=== PATIENT | female | born 1985 | race Caucasian/White ===

== ENCOUNTER 2022-02-13 16:28 | Emergency (ER) | payer BC, OTHER ==
[~2022-02-13 16:28] MED LIST: Iopamidol 370 76% 100 ML VIAL ONE
[2022-02-13] MEDS ORDERED: Sodium Chloride 0.9% 1,000 ML ONE (17:31)
[2022-02-13 17:33] LABS: #Basophils 0.1 thou/uL (0.0-0.2); #Eosinphils 0.2 thou/uL (0.0-0.7); #Lymphocytes 1.9 thou/uL (1.20-3.40); #Monocytes 0.4 thou/uL (0.11-0.59); #Neutrophils 3.3 thou/uL (1.40-6.50); %Basophils 1.2 % (0.0-1.0); %Lymphocytes 32.2 % (21.0-51.0); %Monocytes 7.2 % (0.0-10.0); %Neutrophils 55.4 % (42.0-75.0); Hemoglobin 13.7 g/dL (12.0-16.0); Mean Corpuscular HGB CONC 31.2 g/dL (32.0-36.0); Mean Corpuscular Hemoglobin 28.1 pg (27.0-31.0); Mean Corpuscular Volume 90.1 fL (78.0-98.0); Mean Platelet Volume 8.8 fL (7.4-10.4); Platelet Count 250 thou/uL (130-400); Red Blood Cell (RBC) Count 4.89 mill/uL (4.20-5.40); White Blood Cell (WBC) Count 5.9 thou/uL (4.8-10.8)
[2022-02-13 17:40] LABS: ALT (SGPT) 10 U/L (8-55); AST (SGOT) 11 U/L (5-34); Albumin 4.4 g/dL (3.5-5.0); Alkaline Phosphatase 69 U/L (40-110); Anion Gap 13 mmol/L (10-20); BUN (Urea Nitrogen) 11 mg/dL (7.0-18.7); Bilirubin, Total 0.3 mg/dL (0.2-1.2); Calc. Creatinine Clearance 0 mL/min (70-130); Carbon Dioxide 24 mmol/L (22-29); Chloride 107 mmol/L (98-107); Globulin 2.4 g/dL (2.4-3.5); Glucose 122 mg/dL (70-105); Potassium 3.7 mmol/L (3.5-5.1); Protein, Total 6.8 g/dL (6.0-8.3); Sodium 140 mmol/L (136-145)
[2022-02-13 17:44] LABS: Bilirubin Negative (Negative); Blood, Urine Negative (Negative); Glucose, Urine (Dipstick) Negative (Negative); Ketone, Urine Negative (Negative); Leukocyte Negative (Negative); Nitrite Negative (Negative); Protein, Urine (Dipstick) 30 mg/dL (Neg-Trace); pH, Urine 5.5 (5.0-9.0)
[2022-02-13 17:46] LABS: Clarity SL HAZY (Clear); Specific Gravity, Urine 1.034 (1.002-1.036)
[2022-02-13 17:47] LABS: Pregnancy Test - Urine (BHCG) Negative (Negative)
[2022-02-13 17:48] LABS: Pregu Control Background? CLEAR/WHITE (CLR/WHITE); Pregu Control Bar Appear? YES (CONTROL BAR); Specific Gravity 1.034 (1.002-1.036)
[2022-02-13 17:53] LABS: RBC/HPF 0-3 HPF (0-3); Squamous Epithelial 0-3 HPF (0-3); WBC/HPF 0-3 HPF (0-3)
[2022-02-13 17:54] LABS: Calcium Oxalate Crystals 1+ HPF (None Seen)
[2022-02-13] MEDS ORDERED: Ketorolac Tromethamine 30 MG/ML VIAL ONE (20:49)
== END 2022-02-13 20:59 | disposition home or self-care (01) ==
LOC: NAV ERS 16:28
DX: N20.0 Calculus of kidney (principal)
CPT/HCPCS: 74177; 80053; 81003; 81015; 81025; 85025; 96374; J1885; J7050; Q9967

== ENCOUNTER 2022-08-17 11:22 | Emergency (ER) | payer OTHER ==
[2022-08-17] MEDS ORDERED: Sodium Chloride 0.9% 100 ML ONE (11:52)
[2022-08-17] MEDS ORDERED: diphenhydrAMINE 50 MG/ML VIAL ONE (11:52)
[2022-08-17] MEDS ORDERED: Metoclopramide HCl 10 MG/2 ML VIAL ONE (11:52)
== END 2022-08-17 12:41 | disposition home or self-care (01) ==
LOC: NAV ER/OP 11:22
DX: G43.909 Migraine, unspecified, not intractable, without status migrainosus (principal)
CPT/HCPCS: 96365; 96375; J1200; J2765

== ENCOUNTER 2023-12-03 08:08 | Emergency (ER) | payer OTHER, SELFPAY ==
[2023-12-03] MEDS ORDERED: Ketorolac Tromethamine 30 MG (1 mL) VIAL ONE (08:32)
[2023-12-03] MEDS ORDERED: Metoclopramide HCl 10 MG (2 mL) VIAL ONE (08:32)
[2023-12-03] MEDS ORDERED: Sodium Chloride 0.9% 1,000 ML ONE (08:32)
[2023-12-03] MEDS ORDERED: diphenhydrAMINE 50 MG/ML VIAL ONE (08:32)
[2023-12-03] MEDS ORDERED: methylPREDNISolone Sod Succ/PF 125 MG/2 ML VIAL ONE (09:36)
[2023-12-03] MEDS ORDERED: Acetaminophen 500 MG TAB ONE (09:36)
== END 2023-12-03 10:31 | disposition home or self-care (01) ==
LOC: NAV ERS 08:08
DX: G43.909 Migraine, unspecified, not intractable, without status migrainosus (principal)
CPT/HCPCS: 96365; 96375; J1200; J1885; J2765; J2930; J7050

== ENCOUNTER 2024-06-25 08:21 | Emergency (ER) | payer BC, SELFPAY ==
[2024-06-25] MEDS ORDERED: Ondansetron PF 4 MG/2 ML Vial ONE (08:35)
[2024-06-25] MEDS ORDERED: Sodium Chloride 0.9% 1,000 ML ONE (08:35)
[2024-06-25] MEDS ORDERED: Ketorolac Tromethamine 30 MG (1 mL) VIAL ONE (08:35)
[2024-06-25 08:40] LABS: #Basophils 0.1 thou/uL (0.0-0.2); #Eosinphils 0.3 thou/uL (0.0-0.7); #Lymphocytes 1.5 thou/uL (1.20-3.40); #Monocytes 0.4 thou/uL (0.11-0.59); %Basophils 1.2 % (0.0-1.0); %Lymphocytes 29.1 % (21.0-51.0); %Monocytes 7.1 % (0.0-10.0); %Neutrophils 57.6 % (42.0-75.0); Hematocrit 44.8 % (36.0-47.0); Hemoglobin 14.5 g/dL (12.0-16.0); Mean Corpuscular HGB CONC 32.4 g/dL (32.0-36.0); Mean Corpuscular Hemoglobin 27.2 pg (27.0-31.0); Mean Corpuscular Volume 83.8 fl (78.0-98.0); Mean Platelet Volume 7.7 fL (7.4-10.4); Platelet Count 275 10x3/uL (130-400); RBC Distribution Width 11.5 % (11.5-14.5); Red Blood Cell (RBC) Count 5.34 mill/uL (4.20-5.40); White Blood Cell (WBC) Count 5.1 10x3/uL (4.8-10.8)
[2024-06-25 08:51] LABS: BHCG - Serum Negative (NEGATIVE); Pregs Control Bar Appear? YES (CONTROL BAR)
[2024-06-25 08:56] LABS: ALT (SGPT) 12 U/L (8-55); AST (SGOT) 12 U/L (5-34); Albumin 4.3 g/dL (3.5-5.0); Alkaline Phosphatase 95 U/L (40-110); Anion Gap 14 mmol/L (10-20); BUN (Urea Nitrogen) 10 mg/dL (7.0-18.7); Bilirubin, Total 0.4 mg/dL (0.2-1.2); Calc. Creatinine Clearance 0 mL/min (70-130); Calcium 9.2 mg/dL (7.8-10.44); Carbon Dioxide 23 mmol/L (22-29); Chloride 104 mmol/L (98-107); Estimated GFR 89; Globulin 3.2 g/dL (2.4-3.5); Glucose 100 mg/dL (70-105); Protein, Total 7.5 g/dL (6.0-8.3); Sodium 137 mmol/L (136-145)
[2024-06-25 09:25] LABS: Bilirubin Negative (Negative); Blood, Urine Moderate (Negative); Clarity Clear (Clear); Glucose, Urine (Dipstick) Negative (Negative); Ketone, Urine Negative (Negative); Leukocyte Negative (Negative); Nitrite Negative (Negative); Protein, Urine (Dipstick) Trace mg/dL (Neg-Trace); Urobilinogen 0.2 mg/dL (Less than 2)
[2024-06-25 09:29] LABS: Specific Gravity, Urine 1.023 (1.005-1.030)
[2024-06-25 09:31] LABS: Bacteria/HPF Rare-Few HPF (None Seen); CAUTI Indications for Culture Pelvic or flank pain; Calcium Oxalate Crystals Rare HPF (None Seen); WBC/HPF 0-3 HPF (0-3)
[2024-06-25 09:32] LABS: Urine Culture Reflex No No
== END 2024-06-25 10:26 | disposition home or self-care (01) ==
LOC: NAV ERS 08:21
DX: N20.0 Calculus of kidney (principal)
CPT/HCPCS: 74176; 80053; 81001; 84703; 85025; 96374; 96375; J1885; J2405; J7030